=== PATIENT | female | born 1965 | race Caucasian/White ===

== ENCOUNTER 2019-10-21 20:45 | Inpatient (IN) ==
[2019-10-21] MEDS ORDERED: ATIVAN PO ONE (22:06)
[2019-10-21] MEDS ORDERED: KLONOPIN ONE (22:56)
[2019-10-21] MEDS ORDERED: KLONOPIN PO ONE (22:58)
[2019-10-21 23:08] LABS: URINE SOURCE CLEAN CATCH
[2019-10-21 23:14] LABS: BILIRUBIN URINE NEGATIVE (NEGATIVE); BLOOD URINE NEGATIVE (NEGATIVE); COLOR STRAW; GLUCOSE URINE NEGATIVE (NEGATIVE); KETONE URINE NEGATIVE (NEGATIVE); LEUKOCYTES URINE NEGATIVE (NEGATIVE); NITRITE URINE NEGATIVE (NEGATIVE); PH URINE 6.5; PROTEIN URINE NEGATIVE (NEGATIVE); SP GRAVITY URINE 1.005; TURBIDITY URINE CLEAR (CLEAR); UR EPITHELIAL CELLS <10 /HPF (<10); URINE BACTERIA NEGATIVE /HPF; URINE RBC <10 /HPF (<10); URINE WBC <10 /HPF (<10); UROBILINOGEN URINE NORMAL (NORMAL)
[2019-10-21 23:56] LABS: BASO# 0.04 X1000 (0.0-0.2); BASO% 0.6 % (0.0-0.8); EOS# 0.12 X1000 (0.0-0.7); EOS% 1.8 % (0.0-10.0); HEMATOCRIT 43.1 % (37.0-47.0); HEMOGLOBIN 14.4 g/dL (12.0-16.0); LYMPH# 2.17 X1000 (1.2-3.4); LYMPH% 32.5 % (20.5-51.1); MCHC 33.4 g/dL (33-37); MCV 80.7 FL (81-99); MONO# 0.49 X1000 (0.11-0.59); MONO% 7.3 % (1.7-9.3); MPV 9.5 FL (7.4-10.4); NEUT# 3.85 X1000 (1.4-6.5); NEUT% 57.8 % (42.2-75.2); PLT 202 X1000 (130-400); RBC 5.34 XMIL (4.2-5.4); RDW 13.8 % (11.5-14.5); WBC 6.67 X1000 (4.8-10.8)
[2019-10-22] MEDS ORDERED: OXY IR PO ONE ×2 (00:48→03:10)
[2019-10-22 00:54] LABS: AGAP 15; ALBUMIN 4.1 g/dL (3.5-5.0); ALKALINE PHOSPHATASE 90 U/L (32-104); AMYLASE 25 U/L (20-200); BUN 8 mg/dL (8-22); CALCIUM 9.5 mg/dL (8.8-10.2); CHLORIDE 102 mmol/L (98-107); COSMO 280; CREATININE 0.7 mg/dL (0.5-0.9); ESTIMATED GFR > 60; GLUCOSE 103 mg/dL (70-104); GOT 12 U/L (10-30); GPT 11 U/L (10-36); LIPASE 15 U/L (13-60); SODIUM 141 mmol/L (136-145); TCO2 24 mmol/L (25-35); TOTAL BILIRUBIN 0.56 mg/dL (0.20-1.00); TOTAL PROTEIN 6.2 g/dL (6.3-8.3)
[2019-10-22] MEDS ORDERED: OXY IR ONE (00:55)
--- NOTE | 2019-10-22 03:40 | PROVIDER DOCUMENTATION ---
This chart was entered by Mary Erickson Scribe, acting as scribe for Coni Meadows MD. HPI-General Adult - General Chief Complaint: Psych-Low Risk Stated Complaint: si Time Seen by Provider: 10/21/19 21:48 Source: patient, family Allergies/Adverse Reactions: Patient Allergies Allergy/AdvReac Type Severity Reaction Status Date / Time Latex, Natural Rubber Allergy ANAPHYLAXIS Verified 10/22/19 05:06 Home Medications: Home Medication List Medication Instructions Recorded Confirmed Last Taken Type Betamethasone Valerate 0.1 gm TOP BID 10/22/19 10/22/19 Unknown History Diclofenac Sodium 2 gm TOP Q6HR 10/22/19 10/22/19 Unknown History Doxycycline Hyclate 100 mg PO BID MDD x 14 days, 10/22/19 10/22/19 Unknown History started 09/29/2019 Duloxetine HCl 30 mg PO DAILY 10/22/19 10/22/19 Unknown History Fentanyl 100 Microgm/Hr Patch 1 ea TOP PRN PRN MDD Q 3 days 10/22/19 10/22/19 Unknown History [Duragesic 100 Microgm/Hr Patch] Hydrochlorothiazide 12.5 mg PO DAILY 10/22/19 10/22/19 Unknown History Lactulose 30 ml PO BID 10/22/19 10/22/19 Unknown History Lidocaine 1 patch TOP PRN PRN 10/22/19 10/22/19 Unknown History Magnesium Citrate [Citrate of 300 ml PO PRN PRN 10/22/19 10/22/19 Unknown History Magnesia] Omeprazole [Prilosec] 20 mg PO BID 10/22/19 10/22/19 Unknown History Ondansetron Odt [Zofran Odt] 4 mg PO Q6H PRN PRN 10/22/19 10/22/19 Unknown History Oxycodone I.r. [Oxy Ir] 10 mg PO Q6HR PRN 10/22/19 10/22/19 Unknown History Polyethylene Glycol 3350 [Miralax] 17 gm PO DAILY 10/22/19 10/22/19 Unknown History Ranitidine [Zantac] 150 mg PO DAILY 10/22/19 10/22/19 Unknown History Trazodone HCl 100 mg PO HS 10/22/19 10/22/19 Unknown History Zolpidem [Ambien] 10 mg PO QHS 10/22/19 10/22/19 Unknown History - History of Present Illness -Gen Adult Nature of Presenting Problems: Pt is a 54 yof who presents to the ED with a cc of urinary retention and dysuria onset 2 months ago. Pt states that her halfway sent her to the ED to see PSYCHIATRY, urologist and gastrologist. Per they are only here to see urology and gastroenterology as [facility] staff told them that the specialists will be available in the ER.Pt also report on and off constipation. Pt is extremely anxious and tearful in the ED. Pt reports hx of spina bifida and tethered cord surgery. Pt reports that she had a supra pubic catheter for 4-5 years and it came off few years ago and since she has been having problems. Pt also says her GI doc told she needs colonoscopy every year. Pt denies any other new complaints. Pt is pain patch and takes po meds too. Location of Pain/Injury: reports: abdomen, other (urethra) Quality of Pain: reports: sharp Severity: reports: mild Onset/Duration: reports: other (2 months) Timing: reports: still present Context/Activities at Onset: reports: none Modifying Factors: improves with: nothing Associated Symptoms: reports: constipation Similar Symptoms Previously?: Yes Recently seen or treated by another doctor?: Yes Review of Systems - Adult - REVIEW OF SYSTEMS - ADULT Constitutional: reports: see HPI Eyes: denies: no symptoms reported Ears, Nose, Mouth & Throat: denies: no symptoms reported Cardiovascular: denies: no symptoms reported Respiratory: denies: no symptoms reported Gastrointestinal: reports: see HPI Genitourinary: reports: see HPI Integumentary: denies: no symptoms reported Neurological: denies: no symptoms reported Psychiatric: denies: no symptoms reported Endocrine: denies: no symptoms reported Hematologic/Lymphatic: denies: no symptoms reported Allergic/Immunologic: denies: no symptoms reported Past History - Adult - PAST MEDICAL HISTORY-ADULT Review of Records: reports: Old Records Reviewed, Nursing Assessment Review, Med ications Reviewed, Social history reviewed & non-contributory. Major Childhood Illnesses: reports: denies history Cardiovascular: reports: denies history Respiratory: reports: denies history Gastrointestinal: reports: denies history Obstetrical/Gynecological: reports: denies history Genitourinary: reports: denies history Musculoskeletal: reports: denies history Neurological: reports: denies history Endocrine/Immune: reports: denies history Other Conditions: reports: denies history Physical Exam-General - PHYSICAL EXAM-ADULT Initial Vital Signs Reviewed: Yes - CONSTITUTIONAL General Appearance: alert, no apparent distress, anxious - EYES Eyes: PERRL/EOMI, pink conjunctivae - HEAD, EARS, NOSE, MOUTH & THROAT HENMT: normocephalic/atraumatic, moist mucous membranes - NECK Neck: non-tender, full range of motion, normal inspection - RESPIRATORY Respiratory: chest non-tender, lungs clear, normal breath sounds, no respiratory distress, no accessory muscle use - CARDIOVASCULAR Cardiovascular: normal peripheral pulses, regular rate, rhythm - GASTROINTESTINAL (ABDOMEN) Abdominal Exam: soft, tenderness (generalized abdomen). negative: non tender - GENITOURINARY Female Genitalia/Pelvic Exam: other (erythematous rash near L groin, residual incision from suprapubic catheter) - MUSCULOSKELETAL Back Exam: normal inspection Extremity: normal range of motion, non-tender, normal inspection - SKIN Integumentary: normal turgor, erythema, rash (L groin) - NEUROLOGIC Neurologic: grossly normal - PSYCHIATRIC Psych/Mental Status: normal mood/affect, normal thought content, normal thought process, oriented x 3 Progress - PLAN OF CARE/RESULTS Progress/Plan/Lab Results: Vital Signs - 8 hr 10/21/19 21:19 Temperature 98.5 F Pulse Rate 107 H Respiratory Rate 18 Blood Pressure 129/87 O2 Sat by Pulse Oximetry 99 Orders Category Date Time Status Lorazepam [Ativan] Med 10/21/19 22:06 Discontinued 1 mg PO NOW ONE d/w that the problems she has are chronic and her labs and imaging do not warrant any admission. The pt refuses a urinary catheter. D/w that pt needs f/u with urology and GI as out patient and the NH should be able to make those. Also informed the to discuss psych consult with NH as he was given a different information. Pt and her made multiple requests for pain meds. Pt was administered her home pain meds. Pt sleeping comfortably. The pt was discharged but the pt started having pain and discomfort, requesting admission. D/w pt and her she can f/u out patient. WIll request hospitalist for admission. Dr Heath agreed for observation. Result Diagrams: 10/21/19 23:50 10/22/19 00:10 - CONSULTS/PCP/HOSPITALIST Notification #1 *Consult/PCP/Hospitalist*: d/w Dr Heath Time Discussed: 05:15 Consult Disposition: Admit Departure - Departure Date of Disposition Decision: 10/22/19 Time of Disposition Decision: 03:37 DIAGNOSIS: Dysuria, Abdominal pain Disposition: ADMITTED INPATIENT 09 Certified Medical Emergency: Emergent Condition: Stable Additional Instructions: ED Follow Up Instructions: You have been treated by a care provider in the Emergency Department. These instructions are being provided to you so you can have an understanding of how to care for yourself upon discharge. Upon discharge from the Emergency D epartment, you are responsible for making arrangements for follow-up care by a physician of your choice. Take all prescribed medications as directed. Return to the Emergency Department immediately for any new or worsening symptoms. You may call the Physician Referral phone number at [phone] to obtain a list of Physicians who are taking new patients. Referrals and Follow-Ups: None,PCP [Primary Care Provider] - Manny Bar MD [ACTIVE STAFF PHYSICIAN] - Call for Appoint. 1-2days Marco Watts MD [ACTIVE STAFF PHYSICIAN] - Discharge Education: Constipation, Adult, [id number] - Critical Care Note This patient required my direct & personal management of CC.: No Attestation - Physician/ AGUILA Attestation Patient care was provided by Advanced Practice Provider:: No The physician spent face to face time with patient:: Yes Advanced Practice Provider documentation review:: Supervising physician onsite and consulted in the evaluation and care of this patient. The physician did have a face to face encounter with the patient. This chart was documented by the indicated scribe, (Mary Erickson Scribe) and accurately reflects the services I performed and decisions made by me, Coni Meadows MD, as attested by the provider's signature.
[2019-10-22 06:09] LABS: HEMOGLOBIN A1C 5.8 % (4.8-6.0)
[2019-10-22] MEDS ORDERED: FLEET ENEMA PR ONE (06:13)
[2019-10-22] MEDS ORDERED: ZOFRAN IV PRN (06:13)
[2019-10-22] MEDS: LOVENOX SUBQ SCH (06:13)
[2019-10-22] MEDS ORDERED: DULCOLAX PR PRN (06:13)
[2019-10-22] MEDS ORDERED: MORPHINE IV PRN (06:13)
--- NOTE | 2019-10-22 06:28 | HISTORY AND PHYSICAL ---
CHIEF COMPLAINT: Urinary retention. HISTORY OF PRESENT ILLNESS: This is a 54-year-old female who comes from [facility]. She has complained of urinary retention and dysuria for the past two months. She has a history of suprapubic catheters, I believe she has had three of them over four or five years, but I believe she has not had a catheter for some time. She also states that she is having abdominal pain and she is constipated. She is tearful during the examination. 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 At any rate, she wants to speak to a urologist about the retention. She states that she also has colonoscopies yearly and would like a GI consult as well. At any rate she will be admitted for further evaluation and treatment. PAST MEDICAL HISTORY: See HPI. PREVIOUS SURGICAL HISTORY: Spinal surgery, orbital fracture surgery, suprapubic catheter x3. SOCIAL HISTORY: Lives in a [facility]. No tobacco, alcohol or illicit drugs. FAMILY HISTORY: A brother has prostate cancer, ALLERGIES: Latex and natural rubber. HOME MEDICATIONS: A list is not available. An order was placed for nursing to contact the [facility] and get a list of medications. REVIEW OF SYSTEMS: A 14-point review of systems was conducted with the patient. The pertinent positives are listed above in the HPI but generalized pain in her shoulders, back, low back, legs. All other systems are reviewed and found to be negative. PHYSICAL EXAMINATION: VITAL SIGNS: Temperature 98.5, pulse 107, respirations 18, blood pressure 129/87, and oxygen saturation is 99% on room air. GENERAL: A 54-year-old female tearful on examination, alert and oriented x3, in no acute distress. HEENT: The head is atraumatic an normocephalic. The pupils are equal, round, and reactive to light. Extraocular eye movement is intact. The sclerae are nonicteric. The conjunctivae are pink. The oral mucosa is moist. NECK: Supple. No JVD. No thyromegaly. The trachea is midline. No cervical lymphadenopathy. CARDIAC: S1, S2 appreciated. No murmurs, gallops, rubs. LUNGS: Clear to auscultation bilaterally with no rhonchi, wheezes, or rales. Symmetric rise and fall with respirations. ABDOMEN: Soft, nondistended, nontender. Bowel sounds present in all four quadrants. Hypoactive. No pulsatile masses. No organomegaly. EXTREMITIES: No cyanosis or clubbing. Mild edema in bilateral ankles, nonpitting. 2+ pedal pulses bilaterally. GENITOURINARY: No bladder distention noted. The patient is voiding in bedside urinal. Old incision noted from previous suprapubic catheter. Erythema to left groin. NEUROLOGICAL: Alert and oriented x3. No focal motor deficits. Otherwise nonfocal examination. DIAGNOSTIC DATA: CT of the abdomen showed constipation. LABORATORY DATA: White blood cell count 6.67, hemoglobin 14.4, hematocrit 43.1, platelet count 202,000. Sodium 141, potassium 4, chloride 102, carbon dioxide 24, BUN 8, creatinine 0.7, glucose 103. Urine unremarkable. ASSESSMENT: 1. Urinary retention. 2. Left groin erythema/rash. 3. Constipation. 4. 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 PLAN: Admit patient to the medical floor. We will give morphine as needed for pain. Consult Urology. Consult GI, which was requested by the patient. We will give her an enema and a suppository for her constipation. We will place nystatin powder b.i.d. on her left groin as it appears to be candidiasis. Further recommendations based on the patient's clinical course. Dictated by LUIS FELIPE Garcia for Milan Heath MD I have performed a face to face diagnostic evaluation. Labs/xrays- reviewed. Exam- Chest- clear, CV- regular. A/P- Urinary retention, spinal bifida- Admit, urology consult . Dr. Heath cc: LUIS FELIPE Garcia MD [facility]
--- NOTE | 2019-10-22 07:01 | Diag Imaging Result Doc PS360 ---
CT ABDOMEN/PELVIS W/O CONTRAST - 10/22/2019 INDICATION: abdominal pain COMPARISON: None FINDINGS: Aside from some patchy atelectasis, the lung bases are clear. Heart size is normal with no pericardial effusion. No radiodense renal stones. No hydronephrosis or hydroureter. Abdominal organs are all normal. There is mild constipation. No bowel obstruction or inflammation. Urinary bladder, uterus, and rectum are normal. There are moderate degenerative changes of the spine. No acute or suspicious bony lesion. IMPRESSION: Mild constipation. No acute disease. This exam was performed using automated exposure control, adjustment of mA or kV according to patient size, and/or use of iterative reconstruction technique Electronically signed by Tushar Bateman 10/22/2019 6:59 AM
[2019-10-22] MEDS: DILAUDID IV PRN ×4 (07:47→21:42)
[2019-10-22] MEDS ORDERED: ATIVAN IV ONE (08:33)
[2019-10-22] MEDS: DURAGESIC 100 MICROGM/HR PATCH TD PRN (12:18)
[2019-10-22] MEDS: LACTULOSE PO SCH ×2 (17:34→21:41)
--- NOTE | 2019-10-22 18:12 | GASTROENTEROLOGY CONSULTATION ---
DATE: 10/22/2019 REASON FOR CONSULTATION: Constipation. HISTORY OF PRESENT ILLNESS: This is a 54-year-old female who resides at [facility]. She came into the emergency room complaining of urinary retention and dysuria for the past several months. She was wanting evaluation by a urologist, and while she was in the emergency room, she stated she also wanted to see a suggestion clerk while she was in the hospital. At the time of my visit, the patient was asleep. She aroused easily. As soon as she aroused, she started complaining of left ear pain. She was tearful. She has reported problems with chronic constipation and usually takes Fleet enemas, sometimes daily. She states she has tried oral medications in the past that did not work for her. She has complained of urinary retention chronically. At 1 point she did have a suprapubic catheter. She states it was removed about 4 years ago. The patient reports burning when she urinates. She has had urinary retention. She has also reported some occasional rectal bleeding. The patient states she has had multiple colonoscopies when she was younger, possibly 12 colonoscopies. At 1 point she states she was told she needed a colonoscopy every year, but then when asked when her last colonoscopy was, she said it was 10 years ago. She has not been seen here locally by a suggestion clerk. Family member at the bedside states she has been seen closer to where she lives, not sure of the doctor's name. The patient states she was told by the emergency room physician due to the rectal bleeding she could either have hemorrhoids or cancer. She is now worried and fearful, and is wanting to have a colonoscopy done. PAST MEDICAL HISTORY: Spina bifida, history of tumor at the base of the spine, history of urinary retention and history of suprapubic catheter in the past, removed about 4 years ago. PAST SURGICAL HISTORY: Spinal surgery, orbital space surgery, suprapubic catheter placement. Last colonoscopy reported over 10 years ago. ALLERGIES TO: Cipro causing anaphylaxis, Cleocin causing hives, Benadryl (unknown reaction), Levsin (unknown reaction), Toradol (abdominal pain), Lasix (anaphylaxis), morphine (itching), niacin (hives), NSAIDs (anaphylaxis), nystatin (hives), penicillins (anaphylaxis), red dye (abdominal pain), sulfonamide antibiotics (hives). HOME MEDICATIONS: Betamethasone valerate 0.1 gram topical twice a day, diclofenac 2 grams every 6 hours, doxycycline 100 mg twice a day x14 days, duloxetine 30 mg daily, fentanyl patch as needed, hydrochlorothiazide 12.5 mg daily, lactulose 30 mL twice a day, lidocaine 1 patch topical as needed, magnesium citrate 300 mg mL as needed, Prilosec 20 mg twice a day, Zofran 4 mg every 6 hours as needed, oxycodone 10 mg every 6 hours as needed, MiraLAX 17 grams daily, Zantac 150 mg daily, trazodone 100 mg every night, zolpidem 10 mg every night. SOCIAL HISTORY: She resides at [facility]. No tobacco or alcohol use. REVIEW OF SYSTEMS: Urinary: Complains of urinary retention. Complains of her urethra burning. GI: Complains of chronic constipation. Some reported abdominal pain. Complains of occasional rectal bleeding. Reports last colonoscopy over 10 years ago. The patient states she has had up to 12 colonoscopies when she was younger. PHYSICAL EXAMINATION: Vital Signs: Temperature 97.2, pulse 91, respirations 16, blood pressure 115/67. General: Patient was asleep at the time of my evaluation. She did arouse. She is tearful during exam. She is complaining of ear pain, urinary retention, abdominal pain, constipation. HEENT: Normocephalic, atraumatic. Pupils equal, round, and reactive to light. Sclerae are nonicteric. Respiratory: Lung sounds essentially clear bilaterally. Cardiovascular: Regular rate and rhythm. Abdomen: Soft. Bowel sounds present. Nondistended. Some reported pain with palpation. Extremities: With some lower extremity edema noted. Genitourinary: The patient has had a history of suprapubic catheter. She had gotten up in between our visits and had urinated, per patient report. Neurologic: Cranial nerves II-XII grossly intact. Patient is tearful often during exam. DIAGNOSTIC RESULTS: Laboratory: Hematology: WBCs 6.67, hemoglobin 14.4, hematocrit 43.1, MCV 80.7, platelets 202. Chemistry: Sodium 141, potassium 4.0, chloride 102, CO2 24, BUN 8, creatinine 0.7, glucose 103. Hemoglobin A1c 5.8. Calcium 9.5, total bilirubin 0.56, AST 12, ALT 11, alkaline phosphatase 90, amylase 25, lipase 15. Urinalysis was normal. Abdominal and pelvis CT scan showing patchy atelectasis, otherwise lung bases are clear. No renal stones noted. No hydronephrosis or hydroureter. Mild constipation with no bowel obstruction or inflammation. Urinary bladder, uterus, and rectum were normal. There were moderate degenerative changes of the spine. No acute or suspicious bony lesions noted. ASSESSMENT AND PLAN: 1. Urinary retention. 2. History of suprapubic catheter in the past about 4 years ago. 3. Constipation. Recommend treating her constipation. The patient is refusing some of her medication. Offered a Fleet enema and Milk of Magnesia. Patient states she was told not to take magnesium, but it is listed on her medication list under magnesium citrate. Patient also refused the generic Fleet enema and states she was told never to take a generic medication and always take the name brand. 4. Reports of rectal bleeding, possibly related to hemorrhoidal bleeding related to constipation. The patient reports having multiple colonoscopies. We do not have those results. She states her last colonoscopy was over 10 years ago, but then she stated that she was told she needed to have a colonoscopy every year. Would recommend treating her constipation. She has an evaluation for Urology placed. Further plans to be made according to her progress. She can follow back with her suggestion clerk closer to home for recommendations on colonoscopy. Depending on her progress, further plans will be made. I have discussed this case with Dr. Watts. Further plans to be made as needed. Dictated by LUIS FELIPE Escalante for Marco Watts MD cc: LUIS FELIPE Stone MD
[2019-10-22] MEDS ORDERED: CYMBALTA PO ONE (18:57)
[2019-10-22] MEDS: MYCOSTATIN POWDER TOP SCH ×2 (20:29→21:42)
--- NOTE | 2019-10-22 21:04 | CONSULTATION ---
DATE OF CONSULTATION: 10/22/2019 CHIEF COMPLAINT: Dysuria and history of neurogenic bladder. HISTORY OF PRESENT ILLNESS: Ms. Murphy is a 54-year-old who presents in consultation regarding dysuria and episode of urinary retention. The patient states that she has been having issues with her bladder for many years now. 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 Franz at [facility]. 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 The patient describes being told previously that she had "spina bifida" like symptoms. She states she has minimal ambulation and significant issues bladder and bowel symptoms. She states she has been told previously that she needed a colostomy; however, she has refused in the past. She previously had suprapubic tubes in place to drain her bladder; however, she states that Dr. Yates placed this many years ago and it has been exchanged at least 3 times, with 3 episodes of having the suprapubic tube removed and then replaced due to patient dissatisfaction. The patient states that she has a chronic wound that has taken a long time to heal in her suprapubic area related to her prior suprapubic tube site. She states she would have frequent drainage around the tube as well as some issues with leakage from her urethra. She states that she has had a latex catheter placed into her urethra previously, and this led to significant trauma per her report. She states that it caused her vagina to fall "inside-out." She states it is unable to place a catheter through her urethra due to this trauma. The patient states she has been feeling that it has been more difficult for her urinate she was admitted to rehab. She feels like she has had to go every 20 minutes for a number of months now. She feels that her symptoms have led to straining and incomplete emptying. She feels that she cannot empty her bladder to completion and she feels like she must strain multiple times to void. She denies history of kidney stones, but does state that she previously had recurrent urinary tract infections and she had indwelling catheter within her urethra. She states that she also had infections when she had her suprapubic tube in place. The patient describes being at a facility for the past several months. Initially, she thought this would just be for a few weeks, and it has progressed and elongated due to issues with her rehabilitation. The patient states that she has not had a bowel movement in 22 days while at her facility, and was transferred to [facility] for evaluation by Urology and GI medicine. The patient describes a long history of constipation and takes multiple medications for constipation. She states that while she was at the facility, she was not given many of these medications and it led to significant impaction. She feels like she has abdominal pain and discomfort as well as burning within her vagina. The patient had a CT scan performed in the emergency room which showed a collapsed bladder with no evidence of hydronephrosis, renal mass, nephrolithiasis, or renal cyst. The patient has constipation present on her CT scan. The patient describes difficulty removing suprapubic tubes in the past due to tightness at her external skin site. She states that she has had significant bleeding after removal of these previously. The patient denies seeing Physical Medicine Rehab recently. She is very concerned about her lower extremity edema and feels this is worsening since she has been in rehab. The patient is quite tearful on exam today and seems to alternate between happiness and severe sadness while talking with her. The patient expresses possible desire for a suprapubic tube, but also adamantly refuses to have suprapubic tube placed. Urology was consulted for recommendations. ALLERGIES: 1. Ciprofloxacin; anaphylaxis. 2. Clindamycin; hives. 3. Benadryl; unknown. 4. Hyoscyamine; unknown. 5. Toradol; abdominal pain. 6. Latex; anaphylaxis. 7. Morphine; itching. 8. Niacin; hives. 9. Nonsteroidal anti-inflammatory medications; anaphylaxis. 10. Nystatin; hives. 11. Penicillins; anaphylaxis. 12. Red dye; abdominal pain. 13. Sulfa; hives. HOME MEDICATIONS: 1. Betamethasone valerate 0.1 g topical b.i.d. 2. Diclofenac 2 g topical q.6 hours. 3. Doxycycline 100 mg p.o. b.i.d. 4. Fluoxetine 30 mg p.o. daily. 5. Fentanyl patch 1 topical every 3 days. 6. Hydrochlorothiazide 12.5 mg p.o. daily. 7. Lactulose 30 mg p.o. b.i.d. 8. Magnesium citrate 300 mg p.o. p.r.n. 9. Prilosec 20 mg b.i.d. 10. Zofran ODT 4 mg p.o. q.6 hours as needed. 11. Oxycodone IR 10 mg p.o. q.6 hours as needed. 12. MiraLAX 17 g p.o. daily. 13. Ranitidine 150 mg p.o. daily. 14. Trazodone 100 mg p.o. daily. 15. Ambien 10 mg p.o. daily. PAST MEDICAL HISTORY: 1. Neurogenic bladder. 2. Pelvic pain. 3. Tethered cord. 4. Gastroesophageal reflux disease. 5. Hypertension. 6. Constipation. 7. Anxiety. 8. Chronic pain. PAST SURGICAL HISTORY: 1. Tethering of cord with removal of a portion of spinal cord mass. 2. Orbital fracture surgery. 3. Suprapubic tube catheter placement on 2 separate occasions. FAMILY HISTORY: The patient has a brother with prostate cancer. SOCIAL HISTORY: Lives in a [place] [facility]. Denies tobacco, alcohol, illicit drug use. REVIEW OF SYSTEMS: A 12 point review of systems was performed with pertinent positives and negatives in HPI. PHYSICAL EXAMINATION: Vital Signs: Temperature 97.3 degrees, heart rate 70, blood pressure 103/60, oxygen saturation on room air. General: Labile emotions during exam. She is alert and oriented x3 on exam, in no acute distress. HEENT: Normocephalic, atraumatic. Pupils equal, round, reactive to light. Extraocular movements intact. Sclerae clear. Conjunctiva are pink. Oral mucosa is moist. Normal dentition. Neck: Trachea midline with no obvious masses. Cardiovascular: Regular rate and rhythm. Lungs: Clear to auscultation bilaterally with no increased work of breathing. Abdomen: Soft, nontender, nondistended. : No evidence of any bladder distention. Slight discomfort over prior suprapubic tube site. This appears to be relatively well healed. Slight erythema was seen, likely related to chronic moisture due to the overlying pannus. Pelvic: The patient refuses pelvic exam today. Skin: No obvious skin lesions or rashes. Extremities: Able to move all extremities. Decreased movement of lower extremities; however, the patient is able to ambulate to bedside commode. Evidence of lower extremity edema 1+ to the ankles. Neurologic: Gross motor and sensory intact. LABS: White blood cell count 6.7, hemoglobin 14.4, hematocrit 43.1, and platelets 202,000. Sodium 141, potassium 4.0, chloride 102, bicarb 24, BUN 8, creatinine 0.7, glucose 103. Urinalysis is negative for blood, leukocytes, bacteria, ketones, and glucose. IMAGING: CT of pelvis images reviewed which showed a normal bladder that is decompressed with no hydronephrosis, renal mass, nephrolithiasis, or renal cyst. The patient has evidence of constipation. Otherwise, a negative urologic exam. ASSESSMENT AND PLAN: Ms. Murphy is a 54-year-old with history of neurogenic bladder related to tethered cord, which has been detethered approximately 30 years ago at [facility]. The patient has been seen at [facility] off and on for a number of years, and was previously seen by Dr. Yates related to a neurogenic bladder. The patient presents today for evaluation of dysuria and concern for urinary retention. She feels like she has been straining to urinate. It is really difficult for her to empty. States this has been going on for some time, but she desired urologic evaluation. In talking with her, it is hard to tell what is causing her symptoms. Her major complaint is regarding urethral burning and dysuria. Urinalysis shows no evidence of blood or leukocytes. I do not think the patient is having infection. The patient feels like it is difficult for her to urinate. I asked to perform a pelvic exam today. The patient refuses. I think that it is difficult for her to get in that position and it is uncomfortable for her. I told her that it is uncertain what is causing her symptoms. It could be a baseline neurogenic bladder as well as related to acute on chronic constipation. She states she had not had a bowel movement over 22 days prior to admission. I think this could have a lot to do with her difficulty to strain the urine as she was not having these voiding symptoms and pelvic pain prior to becoming constipated significant constipation. I also think the patient has some underlying neurogenic bladder. She has had suprapubic tubes placed on several occasions and then she ultimately has them removed as they were uncomfortable for her. Uncertain why it has been so difficult for her to maintain suprapubic tubes, and patient is considering whether she would like one again. The patient was told previously she needed a colostomy due to her constipation. Uncertain if this is true. Recommended GI Medicine followup. The patient states that she was seen by them today. In talking with her and her caregiver, it is reasonable to perform urodynamics in the outpatient setting to assess her bladder function. The patient's post void residual has been low. CT scan showed a very decompressed bladder. I do not think the patient is having true retention, but may be having urinary frequency as she feels like she goes to the bathroom every 15 to 20 minutes. I do not think the patient is having true retention, but rather overactive detrusor activity potentially, with maybe detrusor sphincter dyssynergia. I recommended urodynamics outpatient to better assess this. Urinalysis shows no evidence of blood or leukocytes to warrant workup with cystoscopy at this time. If the patient continues to have symptoms, could consider Azo or Pyridium. The patient has multiple allergies to medications and uncertain if she is allergic to these. Had offered her a trial of Flomax or anticholinergics. The patient is concerned about side effect profile and would not desire to take these at this time. From a urologic standpoint, we plan for outpatient followup once her constipation improves. Please call with questions or concerns. cc: MD SELENE Villarreal
[2019-10-22] MEDS: DESYREL PO SCH (21:41)
[2019-10-22] MEDS: AMBIEN PO SCH (21:41)
[2019-10-22] MEDS: PRILOSEC PO SCH (21:42)
[2019-10-23] MEDS: LACTULOSE PO SCH ×6 (01:10→21:36)
[2019-10-23] MEDS: DILAUDID IV PRN ×6 (03:46→21:34)
[2019-10-23] MEDS: LOVENOX SUBQ SCH (05:45)
[2019-10-23] MEDS: HYDROCHLOROTHIAZIDE PO SCH (08:52)
[2019-10-23] MEDS: KLONOPIN PO SCH ×3 (08:52→21:33)
[2019-10-23] MEDS: CYMBALTA PO SCH (08:52)
[2019-10-23] MEDS: PEPCID PO SCH (08:53)
[2019-10-23] MEDS: PRILOSEC PO SCH ×3 (08:53→21:33)
[2019-10-23] MEDS: MYCOSTATIN POWDER TOP SCH ×2 (10:14→21:36)
[2019-10-23] MEDS: ZITHROMAX PO SCH ×3 (10:34→12:03)
[2019-10-23] MEDS: MUPIROCIN OINTMENT TOP SCH (10:38)
[2019-10-23] MEDS: LIDODERM TOP PRN (10:40)
--- NOTE | 2019-10-23 11:43 | Diag Imaging Result Doc PS360 ---
EXAM: CHEST-2 VIEWS HISTORY: cough, sob TECHNIQUE: Two views COMPARISON: None. FINDINGS: The lungs are well expanded. The heart is not enlarged. Left subclavian portacatheter. The vessels are not distended. There are no infiltrates. No pleural effusions. IMPRESSION: No pneumonia or congestive failure Electronically signed by Glenn Nuno 10/23/2019 11:41 AM
[2019-10-23] MEDS: TYLENOL PO PRN ×2 (12:02→19:55)
--- NOTE | 2019-10-23 16:42 | PROGRESS NOTE ---
DATE: 10/23/2019 SUBJECTIVE: Patient reports having some sore throat and wheezing. He requests to me to have flu test and to check if there is any pharyngitis. OBJECTIVE: Vital Signs: Temperature 98.1 degrees, heart rate 67, respiratory 15, blood pressure 98/69, O2 saturation 95% on room air. General Examination: This is a chronically ill- appearing, 54-year-old female, lying in bed in no acute distress. Cardiovascular exam: S1, S2 heard. No murmurs, gallops, or rubs. Regular rate and rhythm. Respiratory exam: Clear bilaterally to auscultation. No work of breathing. No use of accessory muscles. Abdomen: Soft, nontender to palpation. Bowel sounds present. No organomegaly. Extremities: No clubbing, cyanosis, or edema. Peripheral pulses present in both legs. Neurological exam: The patient is alert, oriented x3. LABORATORY DATA: Pending at the time of my dictation. ASSESSMENT AND PLAN: 1. Urinary retention. Patient has been evaluated by Urology and has had a thorough evaluation. Conclusion is that patient will have urodynamics as an outpatient. At this point, no procedures are going to be performed on this patient. 2. Constipation. Patient has been evaluated by Gastroenterology. The patient was having some bloody stool that looks like she may have some hemorrhoids. Considering the patient lives in a fpc and is bed-bound, will talk with Gastroenterology on Friday. If colonoscopy in case is warranted, it can be done while she is in the hospital. At this point, we will continue to monitor this patient. 3. Sore throat. We are going to order flu swab, Streptococcus swab and an x-ray to see if there is any apparent respiratory infection going on or any influenza. 4. History of spina bifida with lipoma at the base of the curved spine, aware. We will continue to monitor this patient closely. cc: Javier Nye MD
[2019-10-23] MEDS: AMBIEN PO SCH (21:33)
[2019-10-23] MEDS: DESYREL PO SCH (21:35)
[2019-10-24] MEDS: DILAUDID IV PRN (01:36)
[2019-10-24] MEDS: TYLENOL PO PRN ×2 (03:48→16:54)
[2019-10-24] MEDS ORDERED: PERCOCET-10 PO PRN (03:56)
[2019-10-24] MEDS: LOVENOX SUBQ SCH (06:03)
[2019-10-24] MEDS: ZITHROMAX PO SCH (08:36)
[2019-10-24] MEDS: HYDROCHLOROTHIAZIDE PO SCH (08:36)
[2019-10-24] MEDS: KLONOPIN PO SCH ×3 (08:37→22:29)
[2019-10-24] MEDS: PRILOSEC PO SCH ×2 (08:37→20:14)
[2019-10-24] MEDS: LACTULOSE PO SCH ×3 (08:37→22:30)
[2019-10-24] MEDS: PEPCID PO SCH (08:37)
[2019-10-24] MEDS: CYMBALTA PO SCH (08:38)
[2019-10-24] MEDS: MUPIROCIN OINTMENT TOP SCH (08:38)
[2019-10-24] MEDS: MYCOSTATIN POWDER TOP SCH ×2 (08:39→22:30)
[2019-10-24] MEDS ORDERED: DILAUDID IV PRN (08:49)
[2019-10-24] MEDS ORDERED: GOLYTELY PO ONE (09:17)
[2019-10-24] MEDS: DILAUDID PO PRN ×5 (09:35→21:40)
--- NOTE | 2019-10-24 10:12 | PROGRESS NOTE ---
DATE: 10/24/2019 SUBJECTIVE: The patient has been complaining of back pain. She says that Dilaudid IV was not helping, neither Percocet, so she prefers to use Dilaudid p.o. She also reports still constipation. OBJECTIVE: Vital Signs: Temperature 97.7 degrees, heart rate 78, respiratory rate 19, blood pressure 113/63, O2 saturation 93% on room air. General: This is a 54-year-old, female, chronically ill appearing, lying in bed in no acute distress. Cardiovascular: S1 and S2 heard. No murmurs, gallops, or rubs. Regular rate and rhythm. Respiratory: Clear bilaterally to auscultation. No work of breathing or using accessory muscles. Abdomen: Soft, a little bit distended. Bowel sounds present. No organomegaly. Extremities: No clubbing, cyanosis, or edema. Peripheral pulses present in both legs. Neurological: The patient is alert and oriented x3. Moves all 4 extremities. LABORATORY DATA: None. ASSESSMENT AND PLAN: 1. Urinary retention. At this point, the plan is to be seen as an outpatient for urodynamics. No procedure is going to be done while she is here in the hospital. 2. Constipation. At this point, because this is a big problem for this patient, will try GoLYTELY today and see how she does. She was complaining of some bloody stools. Dr. Watts is following this patient, so they are going to decide if they are going to do colonoscopy or not. Will follow recommendations from Gastroenterology. 3. Chronic pain. As we mentioned before, this patient is on fentanyl patch. She has been also on lidocaine patches and oral pain medications, so at this point, she prefers to be back on Dilaudid by mouth. Will provide that medication today. 4. History of spina bifida with lipoma at the base of the lumbar spine. Aware. Will continue to monitor. cc: Javier Nye MD [facility]
[2019-10-24] MEDS: LIDODERM TOP PRN (11:01)
[2019-10-24] MEDS: ZOFRAN PO PRN (21:05)
[2019-10-24] MEDS: AMBIEN PO SCH (22:29)
[2019-10-24] MEDS: DESYREL PO SCH (22:29)
[2019-10-25] MEDS: DILAUDID PO PRN ×3 (03:14→10:12)
[2019-10-25] MEDS: LOVENOX SUBQ SCH (07:02)
--- NOTE | 2019-10-25 07:39 | PROGRESS NOTE ---
DATE: 10/25/2019 SUBJECTIVE: No acute events overnight. The patient was taking GoLYTELY and has had 1 small bowel movement per her report. She denies significant dysuria today. She feels like she continues to strain to urinate, which has been longstanding for her. She denies any fevers or chills. She states she has been able to tolerate p.o. intake. She voided 5 times yesterday and denies any bloody urinary output. OBJECTIVE: Vital signs: Temperature 97.9 degrees, heart rate 64, blood pressure 122/52, oxygenation 95% on room air. General: No acute distress. Resting comfortably in bed. Alert and oriented x3. Respiratory: Good respiratory effort without audible wheezing or rales. Abdomen: Soft, nontender, nondistended. : No suprapubic tenderness. No CVA tenderness. LABS: No new labs ordered since 10/22/2019 with creatinine 0.7 at that time. The patient's lactate was 1.1 on 10/23/2019. ASSESSMENT AND PLAN: Ms. Murphy is a 54-year-old with history of neurogenic bladder, pelvic pain, tethered cord, gastroesophageal reflux disease, hypertension, chronic constipation, anxiety, who presents in consultation regarding neurogenic bladder and urinary retention. The patient has been able to empty bladder to completion. She continues to be constipated and has been seen by GI Medicine regarding this. I think this is complicating her symptoms and likely leading to discomfort, as when she was not constipated, she was not having any burning per her report. Would continue with voiding spontaneously as she is quite concerned about having a catheter placed into her bladder. I discussed with her and her caregiver regarding a trial of Flomax or an alpha antagonist. The patient states she has taken this before and it has not helped. She would like to hold off on any therapy currently, as she does not want to take any more medications than she has to. Overall patient seems to be improved. Would continue with vigorous bowel regiment, as I think that this is prompting most of her symptoms. We will continue to monitor from a urologic standpoint. The patient will likely need outpatient followup with urodynamics. cc: MD SELENE Villarreal
[2019-10-25] MEDS: TYLENOL PO PRN ×3 (08:11→21:37)
[2019-10-25] MEDS: LACTULOSE PO SCH (08:11)
[2019-10-25] MEDS: PRILOSEC PO SCH ×2 (08:11→22:38)
[2019-10-25] MEDS: DURAGESIC 100 MICROGM/HR PATCH TD PRN (08:12)
[2019-10-25] MEDS: CYMBALTA PO SCH (08:12)
[2019-10-25] MEDS: PEPCID PO SCH (08:12)
[2019-10-25] MEDS: HYDROCHLOROTHIAZIDE PO SCH (08:13)
[2019-10-25] MEDS: MYCOSTATIN POWDER TOP SCH (08:15)
[2019-10-25] MEDS: MUPIROCIN OINTMENT TOP SCH (08:16)
[2019-10-25] MEDS: KLONOPIN PO SCH ×3 (08:20→22:37)
[2019-10-25] MEDS: ZOFRAN PO PRN (10:12)
[2019-10-25] MEDS ORDERED: FLEET MINERAL OIL ENEMA PR ONE (10:41)
[2019-10-25] MEDS: LIDODERM TOP PRN (11:12)
[2019-10-25] MEDS: MOVANTIK PO ONE ×2 (11:12→11:19)
--- NOTE | 2019-10-25 11:24 | PROGRESS NOTE ---
DATE: 10/25/2019 SUBJECTIVE: This morning, Ms. Murphy refers to be hurting everywhere. She says she has not had a bowel movement and it has been remarkably difficult for her to urinate. OBJECTIVE: Vital Signs: Blood pressure is 142/67, pulse of 70, respirations are 20, temperature is 98.0 degrees, the patient is saturating 96% on room air. General Examination: Ms. Murphy is a 54-year-old, elderly, female. She is in bed. No distress. HEENT: Mucosa is pink and moist. Anicteric. Acyanotic. Neck: Supple. Chest: Clear to auscultation. Cardiovascular: Regular rate and rhythm. No murmurs, no rubs, no gallops. GI: Abdomen is soft. It is globally distended. Tender palpating everywhere but no rebound and no guarding. The patient has an old cystostomy scar on the lower mid abdomen. There is Elsa intertrigo in both groin and lower abdominal skin folds. There is also a small area of ulceration on the left groin. PAN DEVULCANIZER: The patient is awake, alert, and oriented. She has limited mobility in the lower extremities but she moves them. Laboratory Data: From the , there is no new. Diagnostic Studies: A CT scan which was done on admission shows mild constipation. No acute disease. A chest x-ray which was done 3 days ago, shows no pneumonia or constipation. ASSESSMENT: 1. Abdominal pain secondary to a combination of constipation and urinary retention. 2. History of spina bifida with lipoma at the base of the lumbar spine. The patient is status post lumbar surgery about 8 years ago. 3. Lower extremity weakness, most likely due to the lumbar spine chronic pathology. 4. Chronic pain syndrome. 5. Elsa intertrigo. 6. Mild inguinal skin erosions with culture positive for Staphylococcus epidermidis. We will continue using just topical management. I do not think patient needs any intravenous antibiotics for that. PLAN: In general, I think Ms. Murphy has a chronic lumbar spine pathology that has been causing her to be chronically constipated and chronic urinary retention with some paraparesis. Comes in because of abdominal pain due to constipation. It is noted that Ms. Murphy is also on narcotic medications, which have complicated the whole clinical picture. I have discontinued the Dilaudid this morning. We will put her on Movantik and we will use Bentyl for the abdominal pain. We will also continue with the bowel regimen. I have added Fleet enemas. We will continue with the GoLYTELY. I am awaiting on further recommendations from GI and urology. cc: Andrew Alvarado MD
[2019-10-25] MEDS: BENTYL IM SCH (12:35)
[2019-10-25] MEDS ORDERED: DURAGESIC 25 MICROGM/HR PATCH TD SCH (15:30)
[2019-10-25] MEDS: OXY IR PO PRN ×2 (16:33→22:37)
[2019-10-25] MEDS ORDERED: OXYCODONE PO SCH (20:00)
--- NOTE | 2019-10-25 20:18 | GASTROENTEROLOGY PROGRESS NOTE ---
DATE: 10/25/2019 SUBJECTIVE: At the time of my visit, the nurse was in the room giving her medication. The patient refused to take the Movantik because she was afraid it had red dye in it. The patient has a lot of allergies. The patient is tearful at times, and she is saying that the only thing that really works for her is what they did at [facility] where she took lactulose and Fleet enemas every other day. She states oral medications do not work for her as far as laxatives go, and they make her urinary retention and dysuria worse. OBJECTIVE: Vital Signs: Temperature 97.5 degrees, pulse 83, respirations 19, blood pressure 146/59. General: Patient was awake and alert. She was tearful off and on during my visit. She has been given GoLYTELY over the weekend. At the time of my visit, she had a small solid stool noted in the bedside commode. Abdomen: Some tenderness noted. Skin: She is pointing to some skin tears or her irritated areas. LABORATORY: Hematology from 10/21/2019: WBC 6.67, hemoglobin 14.4, hematocrit 43.1, MCV 80.7, platelets 202,000. Chemistry: Sodium 141, potassium 4.0, chloride 102, CO2 24, BUN 8, creatinine 0.7, glucose 103, total bilirubin 0.56, AST 12, ALT 11, alkaline phosphatase 90, total protein 6.2, amylase 25, lipase 15. Urinalysis was negative. IMAGING STUDIES: She had imaging studies on admission. Abdominal/pelvis CT scan that showed mild constipation, otherwise no evidence of acute disease. ASSESSMENT: 1. Abdominal pain. 2. Constipation. 3. Chronic pain syndrome. 4. History of spina bifida with lipoma at the base of the spine. 5. Skin irritation that was positive for Staphylococcus epidermis using topical management. 6. Constipation along with urinary retention/urgency. Patient has been seen by Urology. PLAN: Would recommend to finish out the GoLYTELY. She has approximately 0.5 to 1 L left of the gallon to drink. The patient has also been seen by Dr. Watts. After discussion, we will try and do a 2-day prep to proceed with colonoscopy for further evaluation of her symptoms. Patient is taking narcotics likely exacerbating her constipation with opioid-induced constipation. Would recommend either Movantik or Relistor. Again, we will repeat the GoLYTELY tomorrow and plan for possible colonoscopy on Friday if she can adequately prep. Further plans will be made according to findings. Patient was also seen by Dr. Watts. Dictated by LUIS FELIPE Escalante for Marco Watts MD cc: LUIS FELIPE Stone MD [facility]
[2019-10-25] MEDS: DESYREL PO SCH (22:37)
[2019-10-25] MEDS: AMBIEN PO SCH (22:37)
[2019-10-26] MEDS: BENTYL IM SCH ×3 (00:05→13:16)
[2019-10-26] MEDS: LACTULOSE PO SCH ×2 (00:06→08:59)
[2019-10-26] MEDS: MYCOSTATIN POWDER TOP SCH ×2 (00:06→09:01)
[2019-10-26] MEDS: GLYCERIN ADULT PR SCH (00:06)
[2019-10-26] MEDS: LOVENOX SUBQ SCH (07:19)
[2019-10-26] MEDS: CYMBALTA PO SCH (08:57)
[2019-10-26] MEDS: KLONOPIN PO SCH ×3 (08:58→21:25)
[2019-10-26] MEDS: PRILOSEC PO SCH ×2 (08:59→21:25)
[2019-10-26] MEDS: HYDROCHLOROTHIAZIDE PO SCH (08:59)
[2019-10-26] MEDS: MUPIROCIN OINTMENT TOP SCH (09:01)
[2019-10-26] MEDS: PEPCID PO SCH (09:01)
[2019-10-26] MEDS: OXY IR PO PRN ×3 (09:02→21:24)
[2019-10-26] MEDS ORDERED: RELISTOR SUBQ ONE (12:05)
[2019-10-26] MEDS: TYLENOL PO PRN (13:15)
[2019-10-26] MEDS ORDERED: GOLYTELY PO ONE (14:00)
--- NOTE | 2019-10-26 14:52 | GASTROENTEROLOGY PROGRESS NOTE ---
DATE: 10/26/2019 SUBJECTIVE: Patient is awake. Family member at the bedside. Patient is complaining of pain. She has had some bowel movements. The last bowel movement in the bedside commode is soft. She will start drinking another gallon of GoLYTELY today for colon prep for possible colonoscopy tomorrow. OBJECTIVE: Vital Signs: Temperature 98.8 degrees, pulse 85, respirations 24, blood pressure 124/62. General: Patient is awake and alert. She is still tearful at times. She is complaining of pain. LABORATORY: Hematology: WBC 6.67, hemoglobin 14.4, hematocrit 43.1, MCV 80.7, platelets 202,000. Chemistry: Sodium 141, potassium 4.0, chloride 102, CO2 24, BUN 8, creatinine 0.7, glucose 103, calcium 9.5, total bilirubin 0.56, AST 12, ALT 11, alkaline phosphatase 90, amylase 15, TSH 1.91. Urinalysis was negative. ASSESSMENT AND PLAN: 1. Abdominal pain. 2. Constipation. 3. Chronic pain syndrome. 4. History of spina bifida with lipoma at the base of the spine. 5. Dermatitis/Staphylococcus coccus epidermidis following recommendation by wound care nurse. 6. Urinary retention/urgency. Patient has been seen by Urology. PLAN: Would repeat her GoLYTELY today. We will also give her a Relistor injection today and 1 in the morning. We had offered Movantik but it may contain red dye which patient is allergic. Relistor not available in oral form, so we will give subcutanous injection today and tomorrow. We will plan for colonoscopy tomorrow. Further plans to be made according to findings. I have discussed this case with Dr. Watts. I have discussed the procedure along with benefits and risks and patient wishes to proceed. Dictated by LUIS FELIPE Escalante for Marco Watts MD cc: LUIS FELIPE Stone MD [facility]
--- NOTE | 2019-10-26 16:56 | PROGRESS NOTE ---
DATE: 10/26/2019 ADDENDUM REPORT I have seen and examined Ms. Murphy today. Please refer to the details of the progress note that has been written up by the medical student. Briefly, Ms. Murphy continues to have generalized pains. She did complain that specifically her left side abdominal wall is just burning her. She has a history of zoster on that side. Her physical exams have been noted as well as her vitals. DIAGNOSES: Our working diagnosis include: 1. Abdominal pain secondary to combination of constipation and urinary retention. 2. History of spina bifida with lipoma at the base of the lumbar spine. The patient has had lumbar surgery 8 years ago. 3. Lower extremity weakness secondary to lumbar spine chronic pathology. 4. Chronic pain syndrome on multiple medications. 5. Elsa intertrigo. 6. Mild left inguinal region ulceration with culture positive for Staphylococcus epidermidis. We will continue with topical management. Wound care is on board. 7. Left abdominal wall post herpetic neuralgia. I have started the patient on Lyrica and also amitriptyline. Please refer to the details of the progress note that has been written by the medical student. cc: Andrew Alvarado MD
[2019-10-26] MEDS: LYRICA PO SCH ×2 (21:25→21:29)
[2019-10-26] MEDS: DESYREL PO SCH (21:25)
[2019-10-26] MEDS: ELAVIL PO SCH (21:28)
[2019-10-26] MEDS: AMBIEN PO SCH (21:32)
[2019-10-26] MEDS: LIDODERM TOP PRN (22:12)
[2019-10-27] MEDS: GLYCERIN ADULT PR SCH (00:02)
[2019-10-27] MEDS: BENTYL IM SCH ×3 (00:02→15:03)
[2019-10-27] MEDS: LACTULOSE PO SCH ×2 (00:03→09:40)
[2019-10-27] MEDS: MYCOSTATIN POWDER TOP SCH ×2 (00:03→17:07)
[2019-10-27] MEDS: OXY IR PO PRN ×3 (03:43→17:49)
[2019-10-27] MEDS: LOVENOX SUBQ SCH (07:24)
[2019-10-27] MEDS ORDERED: RELISTOR SUBQ ONE (09:00)
[2019-10-27] MEDS: LYRICA PO SCH ×2 (09:02→09:40)
[2019-10-27] MEDS: HYDROCHLOROTHIAZIDE PO SCH ×2 (09:35→09:39)
[2019-10-27] MEDS: PEPCID PO SCH (09:39)
[2019-10-27] MEDS: CYMBALTA PO SCH (09:39)
[2019-10-27] MEDS: PRILOSEC PO SCH ×2 (09:40→21:20)
[2019-10-27] MEDS: KLONOPIN PO SCH ×3 (09:40→21:20)
[2019-10-27] MEDS: TYLENOL PO PRN ×2 (09:51→21:20)
[2019-10-27 11:56] LABS: HEMATOCRIT 39.7 % (37.0-47.0); MCHC 32.7 g/dL (33-37); MCV 82.5 FL (81-99); MPV 9.3 FL (7.4-10.4); RBC 4.81 XMIL (4.2-5.4); RDW 13.7 % (11.5-14.5); WBC 5.97 X1000 (4.8-10.8)
[2019-10-27] MEDS ORDERED: DIPRIVAN 1% ONE ×2 (12:35→13:36)
[2019-10-27] MEDS ORDERED: XYLOCAINE-MPF 2% ONE ×2 (12:36→13:37)
[2019-10-27 13:10] LABS: AGAP 15; ALBUMIN 4.2 g/dL (3.5-5.0); BUN 6 mg/dL (8-22); CALCIUM 9.5 mg/dL (8.8-10.2); CHLORIDE 101 mmol/L (98-107); COSMO 277; CREATININE 0.7 mg/dL (0.5-0.9); ESTIMATED GFR > 60; GLUCOSE 106 mg/dL (70-104); MAGNESIUM 1.8 mg/dL (1.5-2.7); POTASSIUM 4.4 mmol/L (3.5-5.1); SODIUM 140 mmol/L (136-145); TCO2 24 mmol/L (25-35)
[2019-10-27] MEDS ORDERED: FENTANYL ONE (13:21)
[2019-10-27] MEDS ORDERED: VERSED ONE (13:22)
--- NOTE | 2019-10-27 13:58 | ENDOSCOPY OPERATIVE NOTE ---
[facility] ENDOSCOPY OPERATIVE NOTE , COLONOSCOPY PROCEDURE REPORT PATIENT NAME: Marah Murphy ADMISSION DATE: 10/27/2019 MR #: [id number] BIRTHDATE: 1965 SURGEON: Marco Watts MD [employer] APPRENTICE: Sanya Singh PROCEDURE DATE: 10/27/2019 STATUS: inpatient INDICATIONS: The patient is a 54 yr old female here for a colonoscopy due to anal bleeding. PROCEDURE PERFORMED: Colonoscopy with ablation MEDICATIONS: Per Anesthesia PREP TYPE: GoLytely
[2019-10-27] MEDS ORDERED: OXY IR ONE (14:11)
[2019-10-27] MEDS ORDERED: DILAUDID ONE ×2 (14:19→14:20)
[2019-10-27] MEDS ORDERED: LR 500 ML ONE (14:21)
[2019-10-27] MEDS: MUPIROCIN OINTMENT TOP SCH (17:08)
--- NOTE | 2019-10-27 17:24 | PROGRESS NOTE ---
DATE: 10/27/2019 SUBJECTIVE: I have seen and examined Ms. Murphy. Ms. Murphy refers to be doing fair. She complains of pains almost everywhere. She alerts to have fallen down yesterday in the evening I was called by the nursing staff. Nobody witnessed the fall. Upon evaluation, they did not see any bruises. OBJECTIVE: Vital signs: Blood pressure is 156/92, pulse of 83, respiration is 18, temperature 96.9 degrees. General: Ms. Murphy is a 54-year-old female. She is in bed, no distress. HEENT: Mucosa is pink and moist. Anicteric. Acyanotic. Neck: Supple. Chest: Clear to auscultation. No crepitations. No rhonchi. Cardiovascular: Regular rate and rhythm. GI: Abdomen is soft, is distended, especially in the lower abdomen, but nontender. Bowel sounds present. There is some Elsa intertrigo in both inguinal region. There is a small area of ulceration on the left groin. I do not see it extruding any purulence. FRONT EDGER: Patient is awake, alert, oriented. She has limited movement in the lower extremities, but she moves them very well. So she says she is limited but she is able to get up with assistant federal public defender step on her feet turn use the bedside commode and get back in the bed. LABORATORY DATA: CBC is completely normal. Chemistry is also within normal range. ASSESSMENT: 1. Abdominal pain. 2. Chronic constipation. 3. Urinary retention. 4. History of spina bifida with status post lumbar surgery 8 years ago. 5. Lower extremity paraparesis. 6. Chronic pain syndrome. 7. Elsa intertrigo. 8. Mild left inguinal skin erosion with a culture positive for Staphylococcus epidermidis. The patient is getting wound care. 9. Rectal bleed per hx. Normal hgb and hematocrit patient underwent colonoscopy this morning. Report has been reviewed for most part unremarkable except for a small polyp. So in general I think Ms. Murphy is doing well. She is obviously crying intermittently whenever you go in. She complains of muscle pains everywhere. She wants to go back on her dose of fentanyl and opioid and oxycodone. We will wait for wound care to evaluate her tomorrow and have hopefully discharge her. cc: Andrew Alvarado MD [facility]
[2019-10-27] MEDS: DESYREL PO SCH (21:20)
[2019-10-27] MEDS: AMBIEN PO SCH (21:20)
[2019-10-28] MEDS: GLYCERIN ADULT PR SCH ×2 (00:02→20:37)
[2019-10-28] MEDS: BENTYL IM SCH ×2 (00:02→06:58)
[2019-10-28] MEDS: ELAVIL PO SCH ×2 (00:02→20:36)
[2019-10-28] MEDS: MYCOSTATIN POWDER TOP SCH ×3 (00:03→20:36)
[2019-10-28] MEDS: LYRICA PO SCH ×3 (00:03→20:36)
[2019-10-28] MEDS: LACTULOSE PO SCH ×3 (00:03→20:36)
[2019-10-28] MEDS: LIDODERM TOP PRN (04:57)
[2019-10-28] MEDS: OXY IR PO PRN ×4 (04:57→22:42)
[2019-10-28] MEDS: PEPCID PO SCH (09:14)
[2019-10-28] MEDS: MUPIROCIN OINTMENT TOP SCH (09:14)
[2019-10-28] MEDS: CYMBALTA PO SCH (09:14)
[2019-10-28] MEDS: KLONOPIN PO SCH ×3 (09:14→20:32)
[2019-10-28] MEDS: HYDROCHLOROTHIAZIDE PO SCH ×2 (09:14→09:17)
[2019-10-28] MEDS: PRILOSEC PO SCH ×2 (09:14→20:32)
[2019-10-28] MEDS: DURAGESIC 100 MICROGM/HR PATCH TD SCH ×2 (09:17→15:29)
[2019-10-28] MEDS ORDERED: A & D OINTMENT TOP PRN (11:32)
[2019-10-28] MEDS: TYLENOL PO PRN (13:38)
[2019-10-28] MEDS ORDERED: DILAUDID IV ONE (15:05)
[2019-10-28] MEDS: HYDROPHOR OINTMENT TOP SCH (15:29)
--- NOTE | 2019-10-28 17:24 | Diag Imaging Result Doc PS360 ---
EXAM: CERVICAL SPINE COMPLETE - 10/28/2019 HISTORY: neck pain TECHNIQUE: Cervical spine five views COMPARISON: None. FINDINGS: The lateral view and oblique view of the head facing towards the right are suboptimally positioned. There is reversal of the normal lordosis which may relate to muscle spasm. There are degenerative changes with mild disc space narrowing at C5-6 and C6-7. There is no fracture or subluxation identified. IMPRESSION: Suboptimal positioning. Apparent muscle spasm. Some degenerative changes at C5-6 and C6-7. No fracture or subluxation identified. If occult injury is suspected clinically, CT scan is recommended. Electronically signed by Unruly Arora 10/28/2019 5:21 PM
[2019-10-28] MEDS: AMBIEN PO SCH (20:32)
[2019-10-28] MEDS: DESYREL PO SCH (20:32)
[2019-10-29] MEDS: OXY IR PO PRN (05:03)
[2019-10-29] MEDS: LIDODERM TOP PRN (05:16)
[2019-10-29] MEDS: LOVENOX SUBQ SCH (05:28)
[2019-10-29] MEDS: TYLENOL PO PRN (06:50)
[2019-10-29] MEDS ORDERED: DILAUDID PO ONE (08:10)
[2019-10-29 08:12] VITALS: BP 132/72
[2019-10-29] MEDS: LACTULOSE PO SCH (08:28)
[2019-10-29] MEDS: HYDROCHLOROTHIAZIDE PO SCH (08:28)
[2019-10-29] MEDS: MYCOSTATIN POWDER TOP SCH (08:29)
[2019-10-29] MEDS: MUPIROCIN OINTMENT TOP SCH (08:29)
[2019-10-29] MEDS: HYDROPHOR OINTMENT TOP SCH (08:29)
[2019-10-29] MEDS: KLONOPIN PO SCH (08:30)
[2019-10-29] MEDS: LYRICA PO SCH (08:30)
[2019-10-29] MEDS: DILAUDID PO ONE ×2 (08:31→08:32)
[2019-10-29] MEDS: CYMBALTA PO SCH (08:31)
--- NOTE | 2019-10-29 16:10 | DISCHARGE SUMMARY ---
ADMISSION DATE: 10/22/2019 DISCHARGE DATE: 10/28/2019 DISPOSITION: Home with hospice. FOLLOW-UP: 1. Dr. Watts. 2. Dr. Bar. CONSULTATION DURING THIS ADMISSION: 1. GI was consulted. Patient was seen by Dr. Watts. 2. Urology was consulted. Patient was seen by Dr. Bar. INVASIVE PROCEDURES DONE DURING THIS ADMISSION: Colonoscopy was done by Dr. Watts. There was a 1.4 mm sessile polyp found in the sigmoid colon, destruction of lesion via ablation was attempted. No other findings were found. ADMISSION DIAGNOSES: 1. Urinary retention. 2. Left groin erythema, rash. 3. Constipation. 4. History of spina bifida. DISCHARGE DIAGNOSES: 1. Abdominal pain secondary to constipation. 2. Chronic constipation with urinary retention. 3. History of spina bifida status post lumbar surgery 8 years ago. 4. Lower extremity paraparesis. 5. Chronic pain syndrome, on multiple high doses of narcotics. 6. Elsa intertrigo. 7. Left inguinal skin erosion with culture positive for Staph epidermidis. The patient has been advised on wound care. 8. Rectal bleed per history. Patient underwent colonoscopy. 9. Neck pain with unremarkable x-ray for any fracture. DISCHARGE MEDICATIONS: 1. Duloxetine 30 mg p.o. daily. 2. Fentanyl 100 mcg p.o. daily every 3 days. 3. Hydrochlorothiazide 12.5 p.o. daily. 4. Lidocaine patch. 5. Omeprazole 20 mg b.i.d. 6. MiraLAX 17 g p.o. daily. 7. Ranitidine 150 p.o. daily. 8. Trazodone 100 mg p.o. at bedtime. 9. Klonopin 1 mg 3 times per day. 10. Lactulose 30 mL p.o. b.i.d. 11. Colace. PRESENTING COMPLAINT: Urinary retention. HISTORY OF PRESENT ILLNESS: Ms. Murphy is a 54-year-old female, who came from [facility] apparently because unable to pass any urine. The patient refers to have had suprapubic catheter before. She has spina bifida with paraparesis. She is chronically in pain. She is chronically constipated and in urinary retention. Upon presenting, she was evaluated and admitted for urology evaluation. She also did make mention of having some blood in her stool and was concerned if she had cancer, so she wanted GI to evaluate her. Of note, Ms. Murphy was on tons of narcotic medication which according to her, she is on that because of chronic pain. On admission, she was evaluated. She was found to have some mild ulceration in the inguinal region which culture later on showed Staph epidermidis. The wound itself does not look infected. I think it is probably a contaminant. It is a very shallow ulceration, so wound care was consulted and was addressed with wound care. Ms. Murphy was evaluated also by Dr. Bar during the hospital course, who thought that Ms. Murphy had been making urine, so there was no need for any further urological intervention and that she was advised to follow up with him on an outpatient basis. Ms. Murphy was also evaluated by Dr. Watts. Initially, there were no immediate plans for colonoscopy. However, the patient was very adamant that she could have cancer. She has been very obstipated. Her pain medications were withheld. She was prepped and a colonoscopy was done, for the most part unremarkable except for small sessile polyp. Postoperatively Ms. Murphy's main issue was about her pain. She was put back on her home 100 mcg of fentanyl, was started back on her oxycodone. She was not very cooperative with the care plan. She did tell as that [facility] now declined to take her back, and because she is on a lot of pain medications, hospice was consulted and Ms. Latham spoke extensively with the family. Ms. Murphy has accepted to go home with hospice and to continue with her care with the other subspecialties. All of the discharge instructions have been discussed with her and the at the bedside. Of note, Ms. Murphy did say that she does not have any primary care physician, so she wanted me to write for her pain medication. I, however, told her that I did not feel comfortable writing for 100 mcg of fentanyl with 30 mg of oxycodone every 6 hours and that if she has been on that regimen from home, then she must have had a primary care or somebody that is writing it up and that she needed to go back to her Pain Management team to address her chronic pain disease. Briefly, Ms. Murphy also referred to have fallen at some point during the hospital course, however, physical exam did not show any bruises. When the nurses evaluated her, she did complain this morning that she still has some pain on her neck. We did an x-ray of her neck which does not show any acute disease. Ms. Murphy will move all extremities without any problem. I do not think she has any acute fractures. Time spent for discharge is 38 minutes. cc: Andrew Alvarado MD
== END 2019-10-29 09:04 | disposition home health service (06) | DRG 392 ==
LOC: ED 20:45 → SUATTDRO 10-22 06:02 → 3N 10-22 06:02
PROVIDERS: ATTEND Internal Medicine